=== PATIENT | male | born 1965 | race Caucasian/White ===

== ENCOUNTER 2025-04-28 10:05 | Emergency (ER) | payer BC, SELFPAY ==
[2025-04-28] VITALS (30 sets, daily range): BP systolic 97–114; BP diastolic 48–56; PULSE 87–128; RESP 9–27; TEMP 37.5; O2SAT 89–94
--- NOTE | 2025-04-28 10:00 | DI.RAD_ITS ---
Exam(s) XR PORTABLE CHEST AP EXAM: XR PORTABLE CHEST AP CLINICAL HISTORY: Sepsis. TECHNIQUE: 2D digital imaging was performed. COMPARISON: No exams were available for comparison FINDINGS: Single AP portable view. Heart size is upper normal. The mediastinum is not widened. No confluent infiltrates nor pleural effusion on the right side. Mildly increased markings in the inferior lingular segment of the left lung noted. No pleural effusion. IMPRESSION: Mild increased markings in the lingular segment of the lower left lung. Possible mild infiltrate. No obvious pleural effusions. DATA REPOSITORY: RADIATION DOSE DELIVERED:
--- NOTE | 2025-04-28 10:11 | ED.GENADUL_ITS ---
Discharge Plan Disposition Patient Disposition: Against Medical Advice Discharge Details Clinical Impression: Status post Mohs surgery for squamous cell carcinoma of skin, Sepsis Primary Care Provider: William Torres ED Provider: Harish Marie Home Meds and New Rx's Prescriptions: Continued albuterol sulfate 90 mcg/actuation HFA aerosol inhaler 2 puff INHALATION Q4H PRN Patient Comments: INHALE 2 PUFFS BY MOUTH EVERY 4 HOURS NEEDED FOR WHEEZING. amlodipine 10 mg tablet 10 mg PO DAILY Patient Comments: TAKE 1 TABLET BY MOUTH ONCE DAILY atorvastatin 20 mg tablet 20 mg PO DAILY Patient Comments: TAKE 1 TABLET BY MOUTH IN THE EVENING cetirizine 10 mg tablet 10 mg PO DAILY Patient Comments: TAKE 1 TABLET BY MOUTH ONCE DAILY finasteride 5 mg tablet 5 mg PO DAILY Patient Comments: TAKE 1 TABLET BY MOUTH ONCE DAILY glipizide 5 mg tablet 5 mg PO DAILY Patient Comments: TAKE 1 TABLET BY MOUTH IN THE MORNING losartan 50 mg tablet 100 mg PO DAILY Patient Comments: TAKE 1 TABLET BY MOUTH DAILY magnesium oxide 500 mg magnesium tablet 500 mg PO BID metformin 500 mg tablet extended release 24 hr 1,000 mg PO BID Patient Comments: TAKE 2 TABLETS BY MOUTH TWICE DAILY multivitamin [Daily Multi-Vitamin] Tablet 1 tab PO DAILY [place]-3 350 mg-235 mg- 90 mg-597 mg capsule,delayed release(DR/EC) 1 cap PO DAILY oxybutynin chloride 10 mg tablet extended release 24hr 10 mg PO DAILY Patient Comments: TAKE 1 TABLET BY MOUTH ONCE DAILY oxycodone 10 mg tablet 10 mg PO Q8H PRN cephalexin 500 mg capsule 500 mg PO TID Patient Comments: TAKE 1 CAPSULE BY MOUTH THREE TIMES DAILY FOR 5 DAYS. TAKE WITH FOOD AND WATER Discharge Instructions Additional Instructions: You were seen in the emergency department for your infected surgical wound. The plan was for you to be transferred via ambulance to [facility]. You elected to sign out AGAINST MEDICAL ADVICE. Please drive directly down to the emergency department in [facility]: [facility] Emergency Department [address] [place] [address] Please check in at the main emergency department entrance. As we discussed there is a risk that you could have worsening infection I or have sepsis which is a bloodstream infection. HPI General Date/Time Provider Initiated Documentation: 04/28/25 10:11 . HPI Narrative: MDM This is a tachycardic but normothermic 59-year-old male 3 days status post large left lateral arm Mohs procedure septic with serosanguineous fluid collection versus abscess for which I will touch base with general surgery following assessment of lactate, 2 sets of blood cultures and empiric treatment with vancomycin and cefepime. No pain out of proportion to suggest necrotizing soft tissue infection. Left hand warm well-perfused and no concern for critical limb ischemia. No ongoing hemorrhage at this point to suggest benefit from tourniquet. Patient is not anticoagulated to suggest benefit from reversal. Of note patient was tachycardic when he was seen at [facility] 3 days ago. 12:23 PM Repeat lactate reassuring. Patient remains normotensive. His tachycardia has nearly resolved. His repeat creatinine is actually slightly worse at 3.9. Per chart [place] [facility] history of CKD. I was in touch with Dr. Guillen from general surgery who evaluated the patient. He felt that the patient would benefit from tertiary care transfer to manage and treat wound with likely wound VAC. 12:53 PM I was in touch with Dr. Camacho from general surgery [place] [facility] [place] He agreed to accept the patient to the emergency department. I met with the patient. He did not want to take an ambulance as he is from [facility] and does not have anyone who can drive him. He received 1 mg of hydromorphone at 11:08 AM as he is on outpatient 10 mg of oxycodone every 8 hours as needed. I spoke with pharmacy. At approximately the 4-hour lillian patient will be metabolized through his hydromorphone. Will sign patient out AMA at 3:08 PM. Urinalysis nitrite and leuk esterase negative. 3 PM 1. I explained the current situation and condition to the patient. 2. I explained the recommended treatment for this condition ?EMS transferred to [facility] [place] 3. I explained the risk of not having the recommended treatment ?delayed treatment deterioration sepsis 4. The patient understands this information has no questions, and repeated back this information. 5. The patient states that they need to leave and will drive directly to [facility] [place] 6. Mental status is lucid and the patient has decision-making capacity. 7. Patient is withdrawing his consent for care HPI This is a patient with a history of squamous cell cancer presenting with a wound infection. The patient underwent an excision of a squamous cell cancer on his left upper shoulder on 04/25/2025. He has been managing the wound care at home, including changing the gauze and taking antibiotics. He has taken 7 doses of his antibiotic regimen so far. He sought medical attention due to his inability to return to work this week. His physician diagnosed an infection in the wound and advised him to visit the ER. He has been experiencing a temperature, with the highest recorded temperature being 99 degrees Fahrenheit. He has been managing the temperature with Tylenol, last taken the previous night. He is right-handed and reports no instances of vomiting. He has been compliant with his antibiotic regimen. Patient denies any obvious purulent drainage. Exam General: Well-appearing in no acute distress speaking in complete sentences. Head: Normocephalic, atraumatic. Eye: Extraocular eye movements intact. No conjunctival injection. No scleral icterus. Ear, nose, mouth, throat: Grossly normal inspection. Normal voice, handling secretions normally. Neck: Trachea midline. Cardiovascular: Well-perfused distal extremities. Respiratory: Nonlabored respiration. Gastrointestinal: Nondistended abdomen. Musculoskeletal: No edema. Moving all 4 extremities spontaneously. Skin: On the left lateral side of the upper extremity there is a large approximately 17 cm in total incision with mild fullness at the dependent and. No obvious purulent drainage. Mild fluctuance. Left hand warm well-perfused 2+ left radial pulse. There is a bullae on the posterior aspect of the Y-shaped incision. Neurologic: Alert and appropriate, no apparent acute deficits. Psychiatric: Mood and manner are appropriate. Grooming and personal hygiene are appropriate. Related Data Home Medications ?Medication ?Instructions ?Recorded ?Confirmed albuterol sulfate 90 mcg/actuation 2 puff inhalation Q 4H PRN 04/28/25 04/28/25 aerosol inhaler amlodipine 10 mg tablet 10 mg PO DAILY 04/28/2505/15 atorvastatin 20 mg tablet 20 mg PO DAILY 04/28/2505/15 cephalexin 500 mg capsule 500 mg PO TID 04/28/2504/28 cetirizine 10 mg tablet 10 mg PO DAILY 04/28/2505/15 finasteride 5 mg tablet 5 mg PO DAILY 04/28/2504/28 glipizide 5 mg tablet 5 mg PO DAILY 04/28/2504/28 losartan 50 mg tablet 100 mg PO DAILY 04/28/2505/15 magnesium oxide 500 mg PO BID 04/28/2504/28 metformin 500 mg tablet,extended 1,000 mg PO BID 04/2804/28/25 release 24 hr multivitamin (Daily Multi-Vitamin 1 tab PO DAILY 04/2804/28/25 tablet) omega 3 350 mg-dha 235 mg-epa 90 1 cap PO DAILY 04/28/25 mg-fish oil 597 mg capsule,delay rel ([place]-3) oxybutynin chloride 10 mg 10 mg PO DAILY 04/28/2505/15 tablet,extended release 24 hr oxycodone 10 mg tablet 10 mg PO Q8H PRN 04/28/25 Allergies Allergy/AdvReac Type Severity Reaction Status Date / Time No Known Allergies Allergy Unverified 04/28/25 10:10 General Stated Complaint: Cellulitis MARQUITA: 3 Course Vital Signs Vital signs: Vital Signs Temperature 37.5 C 04/28/25 10:07 Pulse 128 H 04/28/25 10:07 Respiratory Rate 18 04/28/25 10:07 Blood Pressure 114/52 L 04/28/25 10:07 Pulse Oximetry 93 04/28/25 10:07 Temperature 37.5 C 04/28/25 10:07 Temperature Source Oral 04/28/25 10:07 Pulse 128 H 04/28/25 10:07 Respiratory Rate 18 04/28/25 10:07 Blood Pressure 114/52 L 04/28/25 10:07 Blood Pressure Position Sitting 04/28/25 10:07 Pulse Oximetry 93 04/28/25 10:07 Oxygen Delivery Method Room Air 04/28/25 10:07 Oxygen Flow Rate 0 04/28/25 10:07 Pain Level 9 04/28/25 10:07 PFSH All Active Problems (Updated 04/28/25 @ 10:38 by Harish Marie MD) SCC (squamous cell carcinoma) (Acute) LOPEZ (acute kidney injury) (Acute) Infected surgical wound (Acute) Sepsis (Acute) Status post Mohs surgery for squamous cell carcinoma of skin (Acute) Social History Smoking/Tobacco Use Status: Never Smoking risk assessment performed?: Yes Alcohol Intake: current Alcohol Intake frequency: 0-2 drinks per day Substance use type: marijuana Housing: house Do you feel safe at home: Yes Do you feel safe in your relationship?: Yes
[2025-04-28 10:32] LABS: Abs Immature Grans 0.07 10^3/uL (0.0-0.06); HCT 36.4 % (40.0-50.0); HGB 12.0 g/dL (13.5-17.5); Immature Grans % 0.5 %; MCH 28.8 pg (27.0-33.0); MCHC 33.0 % (32.0-36.0); MCV 87 fL (80-95); MPV 9.5 fL (8.0-11.0); Platelet Count 250 10^3/uL (130-400); RBC 4.17 10^6/uL (4.36-5.78); RDW 13.6 % (11.8-14.1); RDW-SD 43.6 fL; WBC 13.49 10^3/uL (4.4-10.8)
[2025-04-28 10:37] LABS: Anion Gap 10.0 mmol/L (3-11); BUN 26 mg/dL (7-18); CO2 26.0 mmol/L (21.0-32.0); Calcium 9.2 mg/dL (8.5-10.1); Chloride 99 mmol/L (98-107); Estimated GFR 24.31 (mL/min/1.73m2); Glucose 171 mg/dL (74-106); Potassium 3.9 mmol/L (3.5-5.1); Sodium 135 mmol/L (136-145)
[2025-04-28] MEDS: CEFEPIME 2 GM in Normal Saline 100 ML IVPB (11:07)
[2025-04-28] MEDS: ACETAMINOPHEN 1,000 MG/100 ML BAG 400 MG IVPB (11:07)
[2025-04-28] MEDS: HYDROmorphone 2 MG/ML SYR 1 MG IVP (11:08)
[2025-04-28] MEDS: Normal Saline 1,000 ML 1000 ML IV (11:08)
[2025-04-28] MEDS: VANCOMYCIN/WATER (PEG) 2 GM/400 ML BAG IV (11:08)
--- NOTE | 2025-04-28 12:02 | SCONE_ITS ---
Date of service: 04/28/25 Time of Service: 10:45 Assessment and Plan Assessment and plan (1) Infected surgical wound: Status: Acute Assessment and plan: Examination of the patient's surgical incision today, this does not appear consistent with normal wound healing. There are some significant erythema, which generously surrounds the surgical site. There are also bullae on the skin just adjacent to the incision line. The wound does need to be opened up and debrided, our facility is poorly equipped for this, most particularly in regards to the subsequent wound care. The size of this wound measures generously 20 cm x 15 cm. Recommend transfer to tertiary care center. Did discuss case today with ER attending physician Dr. Marie (2) LOPEZ (acute kidney injury): Status: Acute Assessment and plan: Patient with elevation of BUN and creatinine. Suspect dehydration. (3) SCC (squamous cell carcinoma): Status: Acute Assessment and plan: History of squamous cell carcinoma, this was diagnosis which prompted surgical excision earlier this week. History of Present Illness History of Present Illness Chief Complaint: Left arm and shoulder pain Narrative: Mr. Sheridan is a 59-year-old male, who underwent an excision of a squamous cell carcinoma on the left upper arm laterally, performed this past Thursday, April 25, 2025. The excised skin and dermis measured about 6 x 6. This was closed with undermined skin flaps, the dimensions of which measured about 20 x 15 cm. 24 hours after the procedure he presented to [facility] having bleeding coming from the site, the patient does report a large volume of blood. This was controlled with dressings. The patient was discharged home. He now presents to our facility ([facility]) having fevers for the past 48 hours, pain and swelling to the incision site. He was seen by his primary care physician yesterday who recommended presentation at the hospital today. Review of Systems All systems reviewed & are unremarkable except as noted in HPI and below PFSH All Active Problems (Updated 04/28/25 @ 10:38 by Harish Marie MD) SCC (squamous cell carcinoma) (Acute) LOPEZ (acute kidney injury) (Acute) Infected surgical wound (Acute) Sepsis (Acute) Status post Mohs surgery for squamous cell carcinoma of skin (Acute) Social History Smoking/Tobacco Use Status: Never Smoking risk assessment performed?: Yes Alcohol Intake: current Alcohol Intake frequency: 0-2 drinks per day Substance use type: marijuana Housing: house Do you feel safe at home: Yes Do you feel safe in your relationship?: Yes Exam Narrative Exam Narrative: Pleasant adult male, he was examined in the emergency department this morning. His vital signs do show some moderate tachycardia. Examination patient's left arm, there is erythema which progresses generously toward the clavicle, some onto the left chest, down the arm toward the elbow, and posteriorly toward the back. This blanches with palpation, and is palpably warmer than the surrounding normal tissue. There is a Y shaped flap closure that measures about 20 x 15 cm. This is approximated with nonabsorbable suture. The skin approximation appears to appropriate, there is some surrounding ecchymosis of the skin, and some bullae on the skin laterally. No purulent material is able to be expressed from the wound. Results Last Vital Signs Temp 37.5 C 04/28/25 10:16 Pulse 128 H 04/28/25 10:16 Resp 18 04/28/25 10:16 BP 114/52 L 04/28/25 10:16 Pulse Ox 93 04/28/25 10:16 Labs 04/28/25 10:18 04/28/25 10:18 Labs: Laboratory Results - last 24 hr 04/28/25 10:18 WBC 13.49 H RBC 4.17 L Hgb 12.0 L Hct 36.4 L MCV 87 MCH 28.8 MCHC 33.0 RDW 13.6 Plt Count 250 MPV 9.5 Immature Gran % 0.5 Neutrophils % 77.7 Lymphocytes % 11.2 Monocytes % 9.0 Eosinophils % 1.3 Basophils % 0.3 Nucleated RBC % 0.0 Absolute Neutrophils 10.48 H Absolute Lymphocytes 1.51 Absolute Monocytes 1.21 H Absolute Eosinophils 0.18 Absolute Basophils 0.04 VBG Lactate 2.5 H* Sodium 135 L Potassium 3.9 Chloride 99 Carbon Dioxide 26.0 Anion Gap 10.0 BUN 26 H Creatinine 2.9 H Est GFR (CKD-EPI 2020) 24.31 Glucose 171 H Calcium 9.2
[2025-04-28 12:28] LABS: Anion Gap 9.6 mmol/L (3-11); BUN 27 mg/dL (7-18); CO2 25.4 mmol/L (21.0-32.0); Calcium 8.5 mg/dL (8.5-10.1); Chloride 102 mmol/L (98-107); Estimated GFR 23.34 (mL/min/1.73m2); Glucose 145 mg/dL (74-106); Potassium 4.0 mmol/L (3.5-5.1); Sodium 137 mmol/L (136-145)
[2025-04-28] MEDS: Normal Saline 1,000 ML 125 ML IV (12:31)
[2025-04-28] MEDS: Normal Saline 500 ML IV (12:49)
[2025-04-28 12:57] LABS: Glucose Negative (Negative)
[2025-04-28 13:10] LABS: RBC Negative HPF (0-2)
[2025-04-28 13:11] LABS: C & S Indicated? No
== END 2025-04-28 15:41 | disposition left against medical advice (07) ==
PROVIDERS: Emergency Provider Emergency Medicine; PCP Specialist/Technologist Athletic Trainer
DX: T81.49XA Infection following a procedure, other surgical site, initial encounter (principal); N17.9 Acute kidney failure, unspecified; C44.92 Squamous cell carcinoma of skin, unspecified
CPT/HCPCS: 36415; 80048; 87040; 96361; 96365; 96366; 96368; 96375; 99285; 71045; 81003; 81015; 83605; 85025; J0131; J0692; J1171; J3373